=== PATIENT | female | born 1950 | race Caucasian/White ===

== ENCOUNTER 2017-09-27 06:53 | Emergency (ER) | payer BC, MEDICARE ==
--- NOTE | 2017-09-27 07:29 | ED ---
Back Pain - HPI Summary HPI Summary: Patient presents with abrupt pain between her shoulder blades that woke her from sleep this morning. She reports this is constant and 9 out of 10. Associated symptoms are intermittent nausea with increased belching. She denies chest pain, shortness of breath, dizziness, lightheadedness, arm numbness tingling or weakness. She does have some abdominal discomfort which is difficult to describe. She denies daylin fevers or chills however she has felt flushed. She denies vomiting, pain with eating or drinking, dysuria, change in bowel habits. No lower back pain. She's had no recent trauma to her chest and no change in activity to elicit muscular pain. She reports no movement makes this better or worse. She's tried nothing prior to arrival. Her medical history is significant for hypothyroid she takes Synthroid. She also has asthma and uses Flovent and Singulair. She denies any wheezing or chest tightness at this time does not feel she's having an asthma attack. Furthermore she denies any history of cardiac issues including but not limited to hypertension, aneurysms, myocardial infarct, hyperlipidemia. She has no smoking history drinking history and denies drug use. When asked if she gets acid reflux she says yes but this does not feel the same she's not had any of these symptoms recently. No history of hiatal hernia or gallbladder issues. Previous surgeries include , appendectomy. - History of Current Complaint Chief Complaint: EDGeneral Stated Complaint: BACK PAIN Time Seen by Provider: 09/27/17 07:04 Hx Obtained From: Patient, Family/Health Editor - daughter Pain Intensity: 9 - Allergies/Home Medications Allergies/Adverse Reactions: Allergies Allergy/AdvReac Type Severity Reaction Status Date / Time No Known Allergies Allergy Verified 09/27/17 06:58 Home Medications: Home Medications Fluticasone HFA 110 mcg(NF) [Flovent HFA 110 mcg(NF)] 1 puff INH BID 09/27/17 [ History Confirmed 09/27/17] Levothyroxine TAB* [Synthroid TAB*] 112 mcg PO DAILY 09/27/17 [History Confirmed 09/27/17] Montelukast Sodium TAB* [Singulair TAB*] 10 mg PO DAILY 09/27/17 [History Confirmed 09/27/17] PMH/Surg Hx/FS Hx/Imm Hx Previously Healthy: Yes Endocrine/Hematology History: Reports: Hx Thyroid Disease Denies: Hx Anticoagulant Therapy, Hx Blood Disorders, Hx Anemia, Hx Unexplained Bleeding, Autoimmune Disease Cardiovascular History: Denies: Hx Aneurysm, Hx Angina, Hx Atrial Fibrillation, Hx Auto Implanted Cardiovert Defib, Hx Congenital Heart Disease, Hx Congestive Heart Failure, Hx Coronary Artery Disease, Hx Hypercholesterolemia, Hx Hypotension, Hx Hypertension, Hx Myocardial Infarction, Hx Syncope, Hx Valvular Heart Disease Respiratory History: Reports: Hx Asthma - well controlled Denies: Hx Chronic Obstructive Pulmonary Disease (COPD), Hx Pulmonary Embolism GI History: Reports: Hx Gastroesophageal Reflux Disease - occasionally Denies: Hx Cirrhosis, Hx Crohn's Disease, Hx Diverticulosis, Hx Gall Bladder Disease, Hx Gastrointestinal Bleed, Hx Hiatal Hernia, Hx Irritable Bowel, Hx Obstructive Bowel, Hx Ulcer Musculoskeletal History: Denies: Hx Back Problems Infectious Disease History: No Infectious Disease History: Denies: Traveled Outside the [place] in Last 30 Days - Social History Alcohol Use: None Hx Substance Use: No Substance Use Type: Reports: None Hx Tobacco Use: No Smoking Status (MU): Never Smoked Tobacco Review of Systems Constitutional: Negative Eyes: Negative ENT: Negative Negative: Chest Pain Negative: Shortness Of Breath Positive: Abdominal Pain, Nausea Positive: no symptoms reported Musculoskeletal: Other - mid thoracic back pain Skin: Negative Neurological: Negative Positive: Anxious All Other Systems Reviewed And Are Negative: Yes Physical Exam Triage Information Reviewed: Yes Vital Signs On Initial Exam: Initial Vitals Temp Pulse Resp BP Pulse Ox 97.4 F 90 20 156/71 98 09/27/17 06:59 09/27/17 06:59 09/27/17 06:59 09/27/17 06:59 09/27/17 06:59 Vital Signs Reviewed: Yes Appearance: Positive: Well-Appearing, Pain Distress, Obese Skin: Positive: Warm, Skin Color Reflects Adequate Perfusion, Dry Head/Face: Positive: Normal Head/Face Inspection Eyes: Positive: Normal, EOMI ENT: Positive: Normal ENT inspection, Hearing grossly normal, Pharynx normal - mucosa moist Neck: Positive: Supple, Nontender Respiratory/Lung Sounds: Positive: Clear to Auscultation, Breath Sounds Present. Negative: Rales, Rhonchi, Wheezes Cardiovascular: Positive: Normal, RRR, S1, S2. Negative: Murmur, Rub, Leg Edema Left, Leg Edema Right - (-) Marcie's Abdomen Description: Positive: Other: - upper ab TTP - no rebound. Negative: Bruit, Distended, Guarding, Hernia @, Hepatomegaly, Pulsatile Mass Bowel Sounds: Positive: Present Musculoskeletal: Positive: Strength/ROM Intact - back NTTP - no pain w/ overhead reaching. Negative: Pain @ Neurological: Positive: Normal, Sensory/Motor Intact, Alert, Oriented to Person Place, Time, CN Intact II-III Psychiatric: Positive: Anxious Diagnostics - Vital Signs Vital Signs Temp Pulse Resp BP Pulse Ox 09/27/17 06:59 97.4 F 90 20 156/71 98 - Laboratory Result Diagrams: 09/27/17 07:49 09/27/17 07:49 Lab Statement: Any lab studies that have been ordered have been reviewed, and results considered in the medical decision making process. Re-Evaluation - Re-Evaluation First Eval Change: Improved - pt reports pain in back is easing up a bit - she's been belching but not sure if this is helping Back Pain Course/Dx - Course Course Of Treatment: no aortic dissection - large GB and elevated AST. Will get lipase, U/S. Pain improved w/o meds or intervention - no ab tenderness on PE. Update: U/S confirms thickened GB wall 6mm w/ pericholecystci fluid - no obstruction. Lipase normal. Pt admits to mild tenderness w/ U/S exam in [facility] only. Dr. Franco to see pt. Suggests outpt augmentin and pt would like to f/ u w/ Dr. Kuhn in [place]. They were also concerned about cardiac issues. ECG NSR, no ST elevations - Diagnoses Provider Diagnoses: Cholelithiasis Discharge - Sign-Out/Discharge Documenting (check all that apply): Patient Departure - Discharge Plan Condition: Stable Disposition: HOME Additional Instructions: You have requested a surgical consult with Dr. Kuhn - call today and take records with you. . In the meantime, drink clears for the next - Billing Disposition and Condition Condition: STABLE Disposition: Home
[2017-09-27] MEDS ORDERED: Morphine VIAL* 4 MG/ML VIAL (1 ml vial) IV ONE (07:37)
[2017-09-27] MEDS ORDERED: Ondansetron ODT TAB* 4 MG PO ONE (07:37)
[2017-09-27 08:09] LABS: ABS Basophils 0 10^3/ul (0-0.2); ABS Eosinophils 0.1 10^3/ul (0-0.6); ABS Monocytes 0.4 10^3/ul (0-0.8); ABS Neutrophils 5.6 10^3/ul (1.5-7.7); ABS Nucleated RBC 0 10^3/ul; Eosinophil % 1.3 % (0-6); Hematocrit 40 % (35-47); Hemoglobin 13.4 g/dl (12.0-16.0); Lymphocyte % 14.6 % (25-47); Mean Corpuscular HGB Conc 34 g/dl (31-36); Mean Corpuscular Hemoglobin 29 pg (27-31); Mean Corpuscular Volume 85 fL (80-97); Mean Platelet Volume 7.3 um3 (7.4-10.4); Nucleated Red Blood Cells % 0; Platelet Count 244 10^3/ul (150-450); Red Blood Count 4.68 10^6/ul (4.00-5.40); Red Cell Distribution Width 14 % (10.5-15); White Blood Count 7.1 10^3/ul (3.5-10.8)
[2017-09-27 08:12] LABS: INR 0.88 (0.77-1.02)
[2017-09-27] MEDS ORDERED: Iodixanol* (CONTRAST) 320 MG/ML 100 ML SDV IV ONE (08:18)
[2017-09-27 08:19] LABS: EGFR Non-African American 76.1 (>60)
--- NOTE | 2017-09-27 09:13 | RAD ---
STUDY: CT angiography of the chest, abdomen and pelvis. INDICATION: "Abrupt and constant pain between shoulder blades" COMPARISON: None. TECHNIQUE: Multidetector CT angiography of the chest, abdomen and pelvis were obtained from the lung apices to the ischial tuberosities after the intravenous injection of 100 mL of Visipaque 320. Reformats were created in the coronal and sagittal planes. 3-D vascular imaging was created from the source images and reviewed as well. ANGIOGRAPHIC FINDINGS: There is no filling defect of the centrilobular pulmonary arteries to indicate centrilobular pulmonary embolism. There is no pathologic enlargement of the thoracic or abdominal aorta. There is no appearance of dissection. There is scattered mild calcification at the arch of the aorta. More severe calcified atherosclerosis is noted at the infrarenal abdominal aorta just above the iliac bifurcation. NON ANGIOGRAPHIC FINDINGS: Chest: The lungs are clear. There are no large pleural effusions. There is no mediastinal or hilar lymphadenopathy. The heart is grossly normal in appearance. Abdomen & Pelvis: The liver, spleen, pancreas and adrenal glands are grossly normal in appearance. There is hyper attenuating material in the dependent portion of the gallbladder consistent with gallstones. There is questionable thickening of the gallbladder wall up to 4 mm. The kidneys are normal in appearance without focal mass, calcification or signs of hydronephrosis. The renal cortices enhance promptly and symmetrically on arterial phase imaging. The small and large bowel are not distended. The appendix is normal in appearance. There is no gross retroperitoneal or mesenteric lymphadenopathy. The uterus is surgically absent. Multilevel degenerative change of the thoracic and lumbar spine includes loss of intervertebral disc height, anterior marginal osteophyte formation at the lower thoracic spine as well as chronic appearing vertebral body height loss at L3. IMPRESSION: 1. No CT evidence of aortic dissection or centrilobular pulmonary embolism. 2. Mild wall thickening and cholelithiasis involving the gallbladder. Especially if the patient's symptoms could be due to cholecystitis further characterization with right upper quadrant ultrasound is advised.
--- NOTE | 2017-09-27 10:26 | RAD ---
Indication: Cholelithiasis. Real-time sonography of the right upper quadrant was performed. Liver is normal in size. No focal lesions or intrahepatic duct dilatation is noted. It is diffusely increased in echogenicity consistent with hepatic steatosis. The gallbladder demonstrates multiple echogenic foci consistent with gallstones. A small amount of pericholecystic fluid is noted. Or bladder wall thickening measuring up to 6 mm is noted. The right kidney measures 10.8 x 4.5 x 4.9 cm. No hydronephrosis is noted. The pancreas head, neck and proximal body demonstrates no mass or pancreatic duct dilatation. Aorta and inferior vena cava are unremarkable. IMPRESSION: Cholelithiasis with gallbladder wall thickening measuring 6 mm with pericholecystic fluid no biliary duct dilatation is noted. Hepatic steatosis.
[2017-09-27 13:37] VITALS: BP 149/73
--- NOTE | 2017-09-27 19:15 | CONS ---
CC: Dr. Vinson of [facility] here in [place].* CONSULTATION REPORT: DATE OF CONSULT: 09/27/17 - Emergency Dept REFERRING PROVIDER: SHARON Hernandez, emergency room. REASON FOR CONSULTATION: Back pain and gallstones. HISTORY OF PRESENT ILLNESS: Ms. Ruby Woodard is a 66-year-old woman with a history of asthma, who awoke this morning around 5:00 with severe mid back discomfort. She has never had pain such as this in the past and this became associated with some nausea without vomiting. She had no shortness of breath or dysphagia. She complained of no abdominal discomfort or distention. She had no diarrhea, fevers, shakes, or chills. She ate dinner last night without difficulty, went to bed without symptoms. She was brought to the emergency room today by her daughter who she called after the pain was not improving. She was noted to be afebrile, although did have a heart rate initially of 85, it subsequently has come down into the 70s. She hemodynamically was otherwise unremarkable and stable. She was noted to have some mild discomfort in the upper abdomen and this has completely resolved. Laboratory workup included a normal white blood cell count without shift. Electrolytes, BUN, and creatinine were within normal limits. She had a lactic acid of 1.8. Total bilirubin was 0.5. Lipase was normal. She had an AST of 115, but ALT and alkaline phosphatase, which were normal. Her EKG and troponin levels were unremarkable for acute change. Due to the nature of her discomfort, she underwent a CAT scan of her chest, abdomen, pelvis with concerns for an aortic dissection and/or aneurysm and this was unremarkable of this standpoint; however, the CAT scan did show mild wall thickening and cholelithiasis of gallbladder with concern for biliary etiology to her discomfort. She subsequently underwent an ultrasound of her gallbladder. I reviewed both the images of the CT and the ultrasound. Gallbladder ultrasound showed also mildly thickened gallbladder wall with a trace amount of pericholecystic fluid. There were gallstones. There was no dilated ducts noted. Since being in the emergency room, she did not receive any narcotic analgesia or nonsteroidals. The pain is completely resolved and she has no further nausea and she is hungry and would like to eat. Surgical consultation was obtained. PAST MEDICAL HISTORY: 1. Asthma. 2. Hypothyroidism. PAST SURGICAL HISTORY: 1. Hysterectomy. 2. section. MEDICATIONS: Include: 1. Singulair. 2. Synthroid. 3. Flovent. ALLERGIES: She has no known drug allergies. SOCIAL HISTORY: She is retired. She lives in [place]. She does not use tobacco or alcohol. REVIEW OF SYSTEMS: Cerebrovascular: No dizziness or visual disturbances. Cardiovascular: No chest pain, shortness of breath, or heart disease. She has no hypertension. Pulmonary: She has a history of asthma, but has not had an attack or symptoms as long as she maintains her medicine regimen. GI: As per above. She has no history of known gallstones. She has never had abdominal discomfort or back pain that she presented with. There has been no recent weight loss. She has had no change in her bowel habits. : No urgency or hematuria. PHYSICAL EXAM: She is afebrile, pulse 71, blood pressure 137/80. In general, she is a well-developed, well-nourished female, is quite pleasant, alert, and conversant, appears to be in no apparent distress, sitting up in the gurney. Oral mucosa is moist. Her sclerae are anicteric. Lungs were clear to auscultation with normal respiratory effort. Heart with regular rate and rhythm without murmurs, rubs, or gallops. Her abdomen was soft and nondistended. She has a well-healed low midline incision without hernia. She had normal active bowel sounds throughout. There is no tenderness in the epigastrium or right upper or left upper quadrant. She has no guarding, and even on deeper palpation, there is no rigidity. Psychiatric: She is awake, alert, and oriented x3. She has normal normal judgment and insight. IMPRESSION: Sudden onset of mid back discomfort, it was quite severe and unrelenting, presenting to the emergency room. Cardiac and vascular etiologies have been ruled out and findings on both CAT scan and ultrasound of gallstones with some mild gallbladder wall thickening and the possibility of some pericholecystic fluid. At present, she is completely afebrile without pain and an unremarkable exam. She had a normal white blood cell count as well as other lab work including lipase and only had a mildly elevated AST. I discussed these findings with her and her daughter. Certainly, she could have an acute calculus cholecystitis, although I suspect that her pain would not have resolved and have such a benign exam. Some of the thickening of the gallbladder wall could be fat surrounding the gallbladder wall; however, I did discuss cholecystectomy with her and I do recommend that she strongly consider proceeding with cholecystectomy for what is most likely going to continue to give her problems in the future. However, she has talked with her daughter and she has name of a surgeon in [place] that she would like to see and would like to try to avoid surgery at this time. I think with her laboratory workup and benign physical exam despite the ultrasound findings that the discharge is acceptable, but I would recommend treating her with oral antibiotics and close followup with the understanding that if her pain returns or she develops new symptoms that she present either to the emergency room back here or at the emergency room where her desired surgeon is available. I discussed all of this also with Ros Carmona and she will be discharged home with Augmentin. [id number]/[facility] #: [id number]
== END 2017-09-27 13:37 | disposition home or self-care (01) ==
LOC: ED 06:53
DX: K80.20 Calculus of gallbladder without cholecystitis without obstruction (principal); R11.0 Nausea; F41.9 Anxiety disorder, unspecified; E07.9 Disorder of thyroid, unspecified; J45.909 Unspecified asthma, uncomplicated
CPT/HCPCS: 36415; 71275; 74174; 76705; 80053; 83605; 83690; 83735; 84443; 84484; 85025; 85379; 85610; 85730; 86850; 86900; 86901; 93005; 99284; A9270-GY; J2270; Q9967